=== PATIENT | female | born 1950 | race Caucasian/White ===

== ENCOUNTER 2022-10-10 18:18 | Observation (INO) | payer MEDICARE ==
[~2022-10-10] VITALS: Ht 152.4 cm; Wt 71.2 kg
[2022-10-10 18:48] LABS: BASO% 0.6 % (0-3); EOS% 1.3 % (0-8); HEMATOCRIT 34.6 % (37.0-47.0); HEMOGLOBIN 11.1 g/dl (12.0-16.0); IMMATURE GRANULOCYTES 0.1 % (0.0-5.0); LYMPH% 34.6 % (15-41); MEAN CELL VOLUME 90.6 fL CALC (80.0-100.0); MEAN CORPUSCULAR HGB 29.1 pG CALC (26.0-32.0); MEAN CORPUSCULAR HGB CONC 32.1 g/dL CAL (32.0-36.0); MONO% 7.9 % (2-13); NEUT# 4.69 thou/uL (2.00-7.15); NEUT% 55.5 % (42-76); RED BLOOD COUNT 3.82 mill/uL (4.20-5.60); RED CELL DISTRI WIDTH 13.4 % (11.5-15.5)
[2022-10-10 19:01] LABS: ALBUMIN 4.3 g/dL (3.2-5.0); ALKALINE PHOSPHATASE 79 u/l (38-126); ANION GAP 18 (6-22 (CALC)); BILIRUBIN, TOTAL 0.6 mg/dL (0.02-1.3); BUN 23 mg/dL (8-23); BUN/CREATININE RATIO 12 (12-20 (CALC)); CARBON DIOXIDE 18 mmol/l (22-30); CHLORIDE 108 mmol/l (95-108); CREATININE 1.9 mg/dL (0.5-1.0); GFR FOR AFR.AMER. 32 ML/MIN (>=60 (CALC)); GFR OTHER RACES 26 ML/MIN (>=60 (CALC)); POTASSIUM 3.7 mmol/l (3.5-5.1); SGOT/AST 39 u/l (9-36); SODIUM 140 mmol/l (137-146); TOTAL PROTEIN 7.4 g/dL (6.3-8.2)
[2022-10-10] MEDS ORDERED: OZEMPIC 8 MG/3M1 INJ SC (19:18)
[2022-10-10] MEDS ORDERED: COZAAR25 MG PO (19:18)
[2022-10-10] MEDS ORDERED: CYMBALTA60 MG PO (19:19)
[2022-10-11 00:58] VITALS: BP 117/74
[2022-10-11 05:18] VITALS: BP 113/66
[2022-10-11 07:31] VITALS: BP 111/69
[2022-10-11 09:19] LABS: HEMATOCRIT 32.1 % (37.0-47.0); HEMOGLOBIN 10.3 g/dl (12.0-16.0); MEAN CELL VOLUME 90.9 fL CALC (80.0-100.0); MEAN CORPUSCULAR HGB 29.2 pG CALC (26.0-32.0); MEAN CORPUSCULAR HGB CONC 32.1 g/dL CAL (32.0-36.0); RED BLOOD COUNT 3.53 mill/uL (4.20-5.60); RED CELL DISTRI WIDTH 13.5 % (11.5-15.5)
[2022-10-11 09:38] LABS: ANION GAP 14 (6-22 (CALC)); BUN 24 mg/dL (8-23); BUN/CREATININE RATIO 13 (12-20 (CALC)); CALCULATED LDLCHOLESTEROL 143 mg/dL (62-129 (CALC)); CARBON DIOXIDE 21 mmol/l (22-30); CHLORIDE 108 mmol/l (95-108); CHOLESTEROL HDL RATIO 5.3 (<4.4 (CALC)); CREATININE 1.9 mg/dL (0.5-1.0); GFR FOR AFR.AMER. 32 ML/MIN (>=60 (CALC)); GFR OTHER RACES 26 ML/MIN (>=60 (CALC)); HDL CHOLESTEROL 42 mg/dL (39.0-59.0); MAGNESIUM 1.9 mg/dL (1.6-2.3); POTASSIUM 3.3 mmol/l (3.5-5.1); SODIUM 140 mmol/l (137-146); TOTAL CHOLESTEROL 221 mg/dl (0-199); TOTAL TRIGLYCERIDES 181 mg/dl (0-149); VLDL CHOLESTROL 36 mg/dl (0-48 (CALC))
[2022-10-11 11:16] VITALS: BP 117/69
[2022-10-11 14:55] VITALS: BP 133/60
[2022-10-11 18:53] VITALS: BP 125/70
[2022-10-12 00:18] VITALS: BP 126/61
[2022-10-12 04:22] VITALS: BP 126/67
[2022-10-12 05:44] LABS: BASO% 0.6 % (0-3); EOS% 2.4 % (0-8); HEMATOCRIT 29.9 % (37.0-47.0); HEMOGLOBIN 9.7 g/dl (12.0-16.0); IMMATURE GRANULOCYTES 0.1 % (0.0-5.0); LYMPH% 34.5 % (15-41); MEAN CELL VOLUME 93.1 fL CALC (80.0-100.0); MEAN CORPUSCULAR HGB 30.2 pG CALC (26.0-32.0); MEAN CORPUSCULAR HGB CONC 32.4 g/dL CAL (32.0-36.0); MONO% 6.9 % (2-13); NEUT# 4.34 thou/uL (2.00-7.15); NEUT% 55.5 % (42-76); RED BLOOD COUNT 3.21 mill/uL (4.20-5.60); RED CELL DISTRI WIDTH 13.5 % (11.5-15.5)
[2022-10-12 06:23] LABS: ANION GAP 11 (6-22 (CALC)); BUN 20 mg/dL (8-23); BUN/CREATININE RATIO 14 (12-20 (CALC)); CARBON DIOXIDE 23 mmol/l (22-30); CHLORIDE 109 mmol/l (95-108); CREATININE 1.5 mg/dL (0.5-1.0); GFR FOR AFR.AMER. 42 ML/MIN (>=60 (CALC)); GFR OTHER RACES 34 ML/MIN (>=60 (CALC)); POTASSIUM 3.8 mmol/l (3.5-5.1); SODIUM 139 mmol/l (137-146)
[2022-10-12 06:24] LABS: C-REACTIVE PROTEIN < 0.5 mg/dL (0-0.9)
[2022-10-12 07:34] VITALS: BP 121/59
[2022-10-12 11:42] VITALS: BP 118/56
== END 2022-10-12 15:27 | disposition home or self-care (01) ==
LOC: ED 18:18 → ED-I 21:00 → ED 21:37 → MS2 21:38
PROVIDERS: Family Medicine; Nurse Practitioner Family; ADMIT Student in an Organized Health Care Education/Training Program; ATTEND Student in an Organized Health Care Education/Training Program
DX: R07.9 Chest pain, unspecified (principal); N17.9 Acute kidney failure, unspecified; I10 Essential (primary) hypertension; E11.9 Type 2 diabetes mellitus without complications; M79.7 Fibromyalgia; Z79.85 Long-term (current) use of injectable non-insulin antidiabetic drugs; Z20.822 Contact with and (suspected) exposure to COVID-19